=== PATIENT | female | born 1975 | race Caucasian/White ===

== ENCOUNTER → 2023-11-09 14:03 | Outpatient (REF) | payer OTHER, SELFPAY | LOC: RAD 14:03 | PROVIDERS: ATTENDING PHYSICIAN Obstetrics & Gynecology; FAMILY PHYSICIAN Family Medicine | DX: N95.8 Other specified menopausal and perimenopausal disorders (principal); N91.4 Secondary oligomenorrhea | CPT/HCPCS: 76830; 76856 ==

== ENCOUNTER 2025-05-25 18:46 | Emergency (ER) | payer OTHER, SELFPAY ==
[2025-05-25 18:52] VITALS: BP 153/78
[2025-05-25 20:07] LABS: Urine Character Clear (Clear)
[2025-05-25 21:35] VITALS: BP 146/92
[2025-05-25 21:36] VITALS: BMI 19.8
[2025-05-25 22:00] VITALS: BP 131/92
--- NOTE | 2025-05-25 22:45 | EDRN ---
The patient complains of lower back pain and tenderness. The patient feels like the area is swollen and bruised. No swelling or bruising noted by this RN. Ice was applied to the patients lower back and an xray was done. The patient can move herself
on the stretcher. The Patient is rolling over front to back to make herself comfortable. The patient complains of some tingling over her left iliac crest. The patient denies any numbness, tingling, or loss of feeling in her legs. The patient denies
any loss of bowel or bladder function.
[2025-05-25 23:05] VITALS: BP 127/84
[2025-05-25] MEDS: TORADOL 30 MG IM (23:42)
[2025-05-25] MEDS: TYLENOL 650 MG PO (23:43)
[2025-05-25] MEDS: VALIUM 5 MG PO (23:44)
[2025-05-26] VITALS: BP 132/78
--- NOTE | 2025-05-26 00:43 | ED.GENMED ---
History of Present Illness
General
Chief Complaint: Back Pain
Time Seen by Provider: 05/25/25 22:47
History of Present Illness
History of Present Illness:
SEE mdm
Past History
Past History
ED Past Medical History: None
ED Past Surgical History: Orthopedic
Social History
Tobacco: Smoker
Living: with family
Employment: Employed ([employer])
Phy Exam
Physical Exam
Physical Exam:
GENERAL: Alert , in no apparent distress, comfortable at rest
HEAD: NCAT
NECK: no midline tenderness, active ROM intact, no paraspinal muscle tenderness;
CARDIAC: Regular rate and rhythm, no edema
LUNGS: Clear breath sounds bilaterally, no acute respiratory distress, no wheezes/rales/rhonchi
ABDOMEN: Soft, without focal tenderness, no r/g, no cvat, normal bowel sounds, nondistended
NEUROLOGICAL: Alert and oriented, no focal neuro deficits, CN intact, 5/5 strength, sensation intact, able to walk, slowly;
SKIN: Warm and dry, no rash
MUSCULOSKELETAL:no hip tenderness anteriorly
PSIS L side mild tenderness
back: previous incision intact
pt has some rotation of her spine due to surgery with hypertrophic muscle or muscle spasm L paraspinal muscle/asymmetry to the paraspinal muscles nd is tneder along that area on the leg approx lower t spine and lower lumbar
neg straight leg raise
normal srnegth and sensation to legs
hips normal ROM with pain in back with L hip flexion
flexed back 40 degrees;
PSYCH: Normal and appropriate interaction.
Course
Orders/Labs/Results
Orders:
Orders
05/25/25 20:01
Urine Reflex Culture from [facility] [Urinalysis Reflex To Culture] Urgent
Date Specimen was Collected: 05/25/25
Time Specimen was Collected: 19:51
05/25/25 22:04
Lumbar Spine Complete, 4 View [CR Lumbar Spine Comp Min 4 Vw*] Urgent
Comment:
Reason For Exam: pain
05/25/25 23:27
Acetaminophen [Tylenol] 650 mg PO NOW STA
Diazepam [Valium] 5 mg PO NOW STA
Ketorolac [Toradol] 30 mg IM NOW STA
Vital Signs
Initial and Last Documented VS:
Initial Vital Signs
Temp Pulse Resp BP Pulse Ox
36.9 C 92 18 153/78 98
05/25/25 18:52 05/25/25 18:52 05/25/25 18:52 05/25/25 18:52 05/25/25 18:52
Last Documented Vital Signs
Temp Pulse Resp BP Pulse Ox
36.9 C 72 18 132/78 99
05/25/25 18:52 05/26/25 00:00 05/26/25 00:00 05/26/25 00:00 05/26/25 00:00
MDM/Problems Addressed
Differential Diagnosis Includes:
see MDM
MDM/Problems Addressed:
Note:
CHIEF COMPLAINT(S)
Lower back pain with left side numbness and muscle spasm.
HISTORY OF PRESENT ILLNESS
The patient is 49 yo F with h/o scoliosis surgery lumbar area ; presents with lower back pain that began a couple of days ago after bending over and hearing a 'snap.' The pain is localized L lumbar back and posterior L hip. The patient
describes the pain as increasingly severe, despite using current pain management strategies, including lyticine patches, topical medical marijuana rub, and ibuprofen. The pain is exacerbated by movement and has led to significant discomfort and
difficulty standing straight. The patient has a history of a Carr jenna insertion in 1993, which has not previously caused issues.
she has a high pain threshold and avoids opioid medications due to adverse reactions, including hallucinations when previously taking hydrocodone.
The patient has been optimal in managing her pain with non-pharmacological methods, such as yoga and stretching, and avoids pain medications due to previous adverse reactions.
denies incontinence, numbness/weakness; no fever/chills
PAST MEDICAL AND SURIGICAL HISTORY
The patient has undergone Carr jenna placement in 1993.
MEDICATIONS
Currently using lyticine patches, topical medical marijuana rub, and ibuprofen for pain management.
REVIEW OF SYSTEMS
- Musculoskeletal: Severe lower back pain, muscle spasm, and inability to stand straight. No radiation to the legs.
- Neurological: Left side numbness and pins and needles sensation.
- Gastrointestinal: No vomiting or diarrhea reported.
- Genitourinary: Denies urinary incontinence.
PHYSICAL EXAM
Nursing notes reviewed and vital signs reviewed.
- Musculoskeletal: Severe low back pain with muscle spasm noted. The patient exhibits difficulty standing upright and is visibly in discomfort during examination.
PLAN
1. Administer a shot of Toradol intramuscularly for pain relief, expected to last approximately eight hours.
2. Prescribe a small dose of Valium orally as a muscle relaxer. Consider a five-milligram dose due to the patients previous tolerance of a lower dose for anxiety-related situations.
3. Advise follow-up with an sales account specialist for further evaluation and management.
4. Reassure the patient regarding low likelihood of hardware malfunction or a spinal disc issue based on current presentation.
5. Discuss potential use of a Medrol Dosepak for inflammation should current measures not suffice.
DIFFERENTIAL DIAGNOSIS
The Differential Diagnosis includes, in no particular order and is not limited to:
1. Muscular strain or sprain
2. Lumbar muscle spasm
3. Herniated disc
4. Sciatica
5. Spinal stenosis
6. Hardware failure of Carr jenna
7. Osteoarthritis of the spine
8. Sacroiliac joint dysfunction
9. Radiculopathy
10. Myofascial pain syndrome
CARE-UPDATE
05/26/25 - 00:15
Patient reports feeling much improved, with improved mobility and reduced desire to cry due to frustration. No abnormal findings were noted on the X-rays concerning spinal alignment or hardware placement. Continuous observation by the radiologist is
pending for any further updates. Patient advised to continue with current pain management regimen, including ibuprofen every eight hours and Tylenol every six hours. Prescribed Valium, with instructions to take half a pill every eight hours as
needed for relaxation and pain management. Encouraged to continue physical therapy, which patient enjoys and finds beneficial. Prescription to be sent to [facility].
*Pulse Oximetry
SaO2: 99
Oxygen Mode of Delivery: Room air
Patient hypoxic: no (99)
*Critical Care Note
Total Time (30-74mins, 75-104mins- exclusive of procedures): Not Applicable
ED Attending Note
-
Portions of this chart may have been created with voice recognition software.� Occasional wrong word or��sound alike� substitutions may have occurred due to the inherent limitations of voice recognition software.
Discharge Plan
Departure
Patient Disposition: Home (Routine Discharge)
Date of Disposition: 05/26/25
Time of Disposition: 00:15
Patient with high blood pressure during this ER visit?: No
Condition: Fair
Covid-19: Not Applicable
Discharge Problem:
Low back pain
Instructions: Low Back Pain (DC)
Prescriptions:
New
diazepam [Valium] 5 mg tablet
5 mg PO TID PRN (Reason: muscle spasm) Qty: 10 0RF
Referrals:
Rowan Padron DO [Family Provider, Family Practice]
Activity Restrictions/Additional Instructions:
Your x-rays will also be officially read by the radiologist but there does not appear to be any malalignment. Your pain seems muscular. Try Valium either a whole tablet of 5 mg every 8 hours or you can cut the tablet in half to 2-1/2 mg every 8
hours as needed. No driving or alcohol on this medication. Continue ibuprofen 3 tablets, that 600 mg every 8 hours with food for 3 to 5 days. Take Tylenol 2 extra strength 2-3 times a day as well. You can continue your lidocaine patches. Return
for significant worsening of symptoms, fever, leg weakness or numbness, incontinence or any concern
Interventions
Interventions:
*Risk Screen - Suicide Last Done: 05/25/25 18:52
*General Assessment Last Done: 05/25/25 21:36
*Neglect/Abuse Screening Last Done: 05/25/25 21:36
*ED- Fall Risk Assessment Last Done: 05/25/25 21:36
*ED COVID-19 Vaccine History Last Done: 05/25/25 21:36
*Nursing Disposition Last Done: 05/26/25 00:34
ED-Musculoskeletal Assessment Last Done: 05/25/25 22:43
Discharge Date and Time
Discharge Date/Time: 05/26/25 00:35
Print Language: DUTCH
== END 2025-05-26 00:35 | disposition home or self-care (01) ==
LOC: EMR 18:46
PROVIDERS: Student in an Organized Health Care Education/Training Program; EMERGENCY PHYSICIAN Emergency Medicine; FAMILY PHYSICIAN Family Medicine
DX: M54.50 Low back pain, unspecified (principal); R20.0 Anesthesia of skin; M62.838 Other muscle spasm; F17.200 Nicotine dependence, unspecified, uncomplicated
CPT/HCPCS: 99283; 72110; 81003

== ENCOUNTER → 2025-06-23 10:24 | Outpatient (REF) | payer OTHER, SELFPAY | LOC: HWRAD 10:24 | PROVIDERS: ATTENDING PHYSICIAN Student in an Organized Health Care Education/Training Program; FAMILY PHYSICIAN Nurse Practitioner Family | DX: M54.10 Radiculopathy, site unspecified (principal); M41.9 Scoliosis, unspecified; Z98.1 Arthrodesis status | CPT/HCPCS: 72131 ==